=== PATIENT | male | born 1975 | race Two or more races ===

== ENCOUNTER 2019-08-14 13:39 | Inpatient (IN) | payer MEDICAID ==
[~2019-08-14] VITALS: Ht 160 cm; Wt 62.8 kg
[2019-08-14] MEDS ORDERED: loperamide 2mg capsule PO PRN (15:15)
[2019-08-14] MEDS ORDERED: magnesium hydroxide 30ml (MOM) UD suspension PO PRN (15:15)
[2019-08-14] MEDS ORDERED: acetaminophen 325mg tablet PO PRN ×2 (15:15)
[2019-08-14] MEDS ORDERED: mag hydrox/Alum hydrox/simeth 30ml oral suspension PO PRN (15:15)
[2019-08-14] MEDS ORDERED: hydrOXYzine 25 MG tablet PO PRN (15:15)
[2019-08-14] MEDS ORDERED: BUPR450T3 PO (16:14)
[2019-08-14] MEDS ORDERED: AZIT250T27 PO (16:14)
[2019-08-14] MEDS ORDERED: GABA-532 PO (16:14)
[2019-08-14] MEDS ORDERED: QUET200T30 PO (16:14)
[2019-08-14 16:54] VITALS: BP 123/72
--- NOTE | 2019-08-14 16:55 | NUR ---
Admission note: [facility] on a 5150 for DTS from [place]. Pt states "I want to kill myself, I want to do it the same way I tried it in March, overdose on Heroin, but this time I will be alone by the [place]. Im doing bad man super sad and not wanting to hurt my mother if I kill myself is losing its power." Client also hears voices telling him to kill himself.
[2019-08-14 20:00] VITALS: BP 104/55
[2019-08-14] MEDS ORDERED: ibuprofen 200mg tablet PO PRN (20:10)
[2019-08-14] MEDS: quetiapine 100mg tablet PO SCH (20:30)
[2019-08-14] MEDS: gabapentin 300mg capsule PO SCH (20:30)
[2019-08-14] MEDS: LORazepam 1 MG tablet PO PRN (20:40)
--- NOTE | 2019-08-15 01:12 | NUR ---
Nursing Progress Note: Legal hold:5150 Client on involuntary status for DTS Report received from nurse with use of SBAR: Jose D RN Why are they here: PT admitted to [facility] at 1502 on a 5150 for DTS from [place]. Pt states "I want to kill myself, I want to do it the same way I tried it in March, overdose on Heroin, but this time I will be alone by the [place]. Im doing bad man super sad and not wanting to hurt my mother if I kill myself is losing its power." Client also hears voices telling him to kill himself. Assessment What has happened this shift: Pt in room majority of shift, attempting to sleep. Pt stated, "I don't want to be here. I'm tired and fed up" in response to suicidality assessment. Pt did not want to discuss mental or physical state with this RN; took multiple attempts to elicit a response. Pt became visibly and verbally agitated when discussing his medications; "I am on a higher dose of gabapentin; I've been on it for years. Dr. Kilpatrick from [facility] should have my records." Pt is requesting an increase in gabapentin and Motrin to help manage his pain that it primarily in his L knee, "They took an MRI last Sunday at [facility] in [place]." Pt charged ankle bracelet in group room from 2016 to 2099 then returned to bedroom to sleep. Pt much calmer during HS med pass stating "Thank you for putting up with me. It is just frustrating they change the medications." S/I, H/I:+SI 05/10, no plan; Denies HI A/VH: Denies Both Sleep: See Sleep Assessment ADL's: Independent Group attendance: N/A Were meds taken: Yes Any med S/E: None reported nor noted Mental Status Exam Appearance: Wearing street clothes, nonskid socks and personal tennis shoes w/o laces, sunglasses Eye contact: Poor, wearing sunglasses most the assessment due to headache causing light sensitivity Behavior: Guarded, Attended HS Snack & charged ankle bracelet in group room Speech: Clear Mood: Agitated, Depression 10, Anxiety 04/09 Affect: Flat Thought process: Linear Thought Content: Wanting medication changes to what he was prescribed outside this facility, Chronic Knee pain, headache, Not wanting to be here Cognition: A&Ox4 Insight: Fair Judgment Fair Interventions PRN's used: Motrin, Tylenol, Ativan Therapeutic interventions:Q15 checks, therapeutic communication 1:1, PRNs as needed Restraints/seclusion/emergency medication: N/A Justification of Continued Inpatient Treatment: Pt voicing active SI intent; needs medication and talk therapy regimen initiated, as well as resources r/t homelessness to ensure pt is stabilized and no longer suicidal prior to discharge.
[2019-08-15] MEDS: gabapentin 300mg capsule PO SCH ×3 (07:40→20:40)
[2019-08-15] MEDS: buPROPion SR 150mg tablet PO SCH ×2 (07:40→20:41)
[2019-08-15 07:52] VITALS: BP 101/57
[2019-08-15 08:12] LABS: HEMOGLOBIN A1C 5.1 % (4.5-6.2)
[2019-08-15 08:14] LABS: CHOL/HDL RATIO 3.7 (0.00-4.99); CHOLESTEROL 156 MG/DL (0-200); HDL CHOLESTEROL 42 MG/DL (35-60); LDL CHOLESTEROL 112 MG/DL (50-100); TRIGLYCERIDES 106 MG/DL (20-135)
[2019-08-15] MEDS: LORazepam 1 MG tablet PO PRN ×3 (08:22→20:40)
[2019-08-15] MEDS: azithromycin 250mg tablet PO SCH (08:22)
[2019-08-15] MEDS ORDERED: FLU VACC QS2019-20 36MOS UP/PF 60 MCG/0.5 ML SYRINGE IMVAC ONE (10:00)
[2019-08-15] MEDS: NICOTINE POLACRILEX 2 MG LOZENGE BC PRN ×2 (14:29→18:08)
--- NOTE | 2019-08-15 17:30 | NUR ---
Nursing Progress Note: Legal hold:5150 Client on involuntary status for DTS Report received from nurse with use of SBAR: Deisy Zimmer RN Why are they here: PT admitted to [facility] at 1502 on a 5150 for DTS from [place]. Pt states "I want to kill myself, I want to do it the same way I tried it in March, overdose on Heroin, but this time I will be alone [place]. Im doing bad man super sad and not wanting to hurt my mother if I kill myself is losing its power." Client also hears voices telling him to kill himself. Assessment What has happened this shift: Pt. asleep at start of shift. Pt. took all medications and ate all meals in the community room. 1:1 done at bedside. Pt. reports SI with a plan to OD on heroin. Pt. states, I wont fail this time even thinking about my mother is not keeping me from ending my life. Pt. is upset because his gabapentin reportedly decreased from 1200mg TID to 300mg TID. Pt. requested PRN for anxiety and given Ativan 1mg po with good effect. Pt. in bed most of morning but in afternoon became more active and seen socializing with other staff. At dinner time pt. walked into the community room and shouted FK this! and walked out of the room. Pt. reports that he is upset that he is not getting the amount of gabapentin he needs. Pt. was able to calm himself down in his room. S/I, H/I: Pt. reports SI with plan to OD on heroin A/VH: Denies Both Sleep: See Sleep Assessment ADL's: Independent Group attendance: N/A Were meds taken: Yes Any med S/E: None reported nor noted Mental Status Exam Appearance: Wearing street clothes, nonskid socks and personal tennis shoes w/o laces, sunglasses Eye contact: Poor, wearing sunglasses most the assessment due to headache causing light sensitivity Behavior: Guarded, Attended HS Snack & charged ankle bracelet in group room Speech: Clear Mood: Agitated, Depression 9/10, Anxiety 7/10 Affect: Flat Thought process: Linear Thought Content: Wanting medication changes to what he was prescribed outside this facility, Chronic Knee pain, headache, Not wanting to be here Cognition: A&Ox4 Insight: Fair Judgment Fair Interventions PRN's used: Motrin, Tylenol, Ativan Therapeutic interventions:Q15 checks, therapeutic communication 1:1, PRNs as needed Restraints/seclusion/emergency medication: N/A Justification of Continued Inpatient Treatment: Pt voicing active SI intent; needs medication and talk therapy regimen initiated, as well as resources r/t homelessness to ensure pt is stabilized and no longer suicidal prior to discharge.
[2019-08-15 20:00] VITALS: BP 109/80
[2019-08-15] MEDS: quetiapine 100mg tablet PO SCH (20:41)
--- NOTE | 2019-08-16 03:10 | NUR ---
Nursing Progress Note: Legal hold: 5150 Client on involuntary status for DTS Report received from nurse with use of SBAR: KAVITHA Jeffery Why are they here: PT admitted to [facility] at 1502 on a 5150 for DTS from [place]. Pt states "I want to kill myself, I want to do it the same way I tried it in March, overdose on Heroin, but this time I will be alone by the [place]. Im doing bad man super sad and not wanting to hurt my mother if I kill myself is losing its power." Client also hears voices telling him to kill himself. Assessment What has happened this shift: Pt approached this RN at change of shift, agitated, and wanting to discuss medication dosages. "I just don't understand. This always happens to me." Pt states his gabapentin dose is incorrect; med hx show conflicting orders; SHAYAN Downey stated that he will contact the MDs regarding the conflicting orders to determine an accurate dosage. Pt visibly angry ans returned to room. During 1:1, pt stated "I just want this to be all be over. I'm tired of it all. If my mom was I could just do it. Isn't that bad, wanting you mom to be gone so that you can be gone? (Pt has expressed not following through with attempts because he didn't want to disappoint his mom)." Pt continued, "I should have just done it and not been a coward. This shit is always happening to me." Pt and RN discussed options to determining gabapentin dosage as well as the courage required to seek help. Pt was calmer by the end of the conversation, but still agitated. Ativan given with HS medications. SHAYAN Downey okay'd motrin increase from 200mg to 600mg TID PRN. Pt ankle bracelet charged in room with this RN sitting 1 to 1. Educated pt that in room charging would only occur this one time due to circumstances of the evening; pt verbalized understanding. S/I, H/I:+SI 10/10 via OD; Denies HI A/VH: Denies Both Sleep: See Sleep Assessment ADL's: Independent Group attendance: N/A Were meds taken: Yes Any med S/E: None reported nor noted Mental Status Exam Appearance: Wearing street clothes, nonskid socks and personal tennis shoes w/o laces, sunglasses Eye contact: Poor, wearing sunglasses most the assessment due to headache causing light sensitivity Behavior: Guarded, Attended HS Snack Speech: Clear Mood: Agitated but able to de-escalate, Depression 06/10, Anxiety 04/09 Affect: Congruent to mood Thought process: Linear Thought Content: Wanting medication changes to what he was prescribed outside this facility Cognition: A&Ox4 Insight: Fair Judgment Fair Interventions PRN's used: Ativan Therapeutic interventions:Q15 checks, therapeutic communication 1:1, PRNs as needed Restraints/seclusion/emergency medication: N/A Justification of Continued Inpatient Treatment: Pt voicing active SI intent; needs medication and talk therapy regimen initiated, as well as resources r/t homelessness to ensure pt is stabilized and no longer suicidal prior to discharge.
[2019-08-16] MEDS: LORazepam 1 MG tablet PO PRN (05:41)
[2019-08-16 07:30] VITALS: BP 112/67
[2019-08-16] MEDS: lurasidone 20mg tablet PO SCH (07:30)
[2019-08-16] MEDS: buPROPion SR 150mg tablet PO SCH ×2 (07:50→20:20)
[2019-08-16] MEDS: azithromycin 250mg tablet PO SCH (07:50)
[2019-08-16] MEDS: gabapentin 300mg capsule PO SCH ×3 (07:50→20:20)
[2019-08-16] MEDS: nicotine 21mg patch - 24 hr TD SCH (07:51)
[2019-08-16 08:00] VITALS: BP 112/67
[2019-08-16] MEDS: hydrOXYzine 25 MG tablet PO PRN ×2 (11:56→17:31)
--- NOTE | 2019-08-16 12:40 | NUR ---
Nurse note: Pt has been discussing with SHAYAN Schrader about his medications and wanting them increased and making promises he will "Go off." or "I will need a padded room if" he doesn't get the medications he is requesting. PA made an adjustment and discontinued Ativan. Pt then requests his BP checked due to "Chest pain." VS WNL and SHAYAN is aware. Pt continues to complain and just wants to leave.
[2019-08-16 12:44] VITALS: BP 117/77
[2019-08-16] MEDS: ibuprofen 200mg tablet PO PRN (15:44)
--- NOTE | 2019-08-16 17:00 | NUR ---
Nursing Progress Note: Legal hold: 5150 Client on involuntary status for DTS Report received from nurse with use of SBAR: Hyun Zimmer RN Why are they here: PT admitted to [facility] at 1502 on a 5150 for DTS from [place]. Pt states "I want to kill myself, I want to do it the same way I tried it in March, overdose on Heroin, but [place]. Im doing bad man super sad and not wanting to hurt my mother if I kill myself is losing its power." Client also hears voices telling him to kill himself. Assessment What has happened this shift: Pt. asleep at start of shift. Pt. awoke and c/o nausea and vomiting, when asked if he wanted medication for emesis pt. stated, Ill eat breakfast and then Ill be ok. Pt. ate all meals in the community room. 1:1 done at bedside. Pt. refused Latuda this AM yelling, What the fK! I am not getting the medications I need, you all are trying to kill me!... All these external forces are against me, it shows that I really should just kill myself In afternoon pt. requested. Ativan, however, when informed that Ativan was discontinued pt. became enraged, stating, You people are not giving me what I need! Pt. than stated, you might as well put me in the padded room because things are about to get serious Security called and pt. was able to calm himself down. Pt. refused hydroxyzine. Pt. called pt. advocate. In Afternoon pt. c/o that his left knee is dislocated, RN assessed knee which did not look dislocated, pt. requesting Ultram for pain. Pt given Motrin 600mg but RN informed pt.s provider of request for ultram and denied. Pt. unhappy about refusal for motrin and began to swear and say Im going to kill myself. Pt. given Tylenol 650mg for pain and knee iced. Pt. reporting that he is going to punch the wall if he does not get what he wants. 20 minutes later pt. came out of his room with swollen right hand saying he tripped on a blanket and injured his hand. X-Ray ordered of right hand and left knee. S/I, H/I: +SI with plan to OD on heroin. 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 ADL's: Independent Group attendance: N/A Were meds taken: Yes Any med S/E: None reported nor noted Mental Status Exam Appearance: Wearing street clothes, nonskid socks and personal tennis shoes w/o laces, sunglasses Eye contact: minimal Behavior: Pt. is guarded and agitated Speech: Clear Mood: Angry but able to de-escalate. Labile. Affect: Congruent to mood Thought process: Linear Thought Content: Wants medication changes Cognition: A&Ox4 Insight: Fair Judgment Fair Interventions PRN's used: Stewart Therapeutic interventions:Q15 checks, therapeutic communication 1:1, PRNs as needed Restraints/seclusion/emergency medication: N/A Justification of Continued Inpatient Treatment: Pt voicing active SI intent; needs medication and talk therapy regimen initiated, as well as resources r/t homelessness to ensure pt is stabilized and no longer suicidal prior to discharge. Addendum: 08/16/19 at 1827 by Dave Meehan RN @ [id number] pt. given Atarax 50mg po for anxiety.
[2019-08-16 20:00] VITALS: BP 118/73
[2019-08-16] MEDS: quetiapine 100mg tablet PO SCH (20:20)
[2019-08-17] MEDS: hydrOXYzine 25 MG tablet PO PRN (01:23)
--- NOTE | 2019-08-17 02:16 | NUR ---
Nursing Progress Note: Legal hold: 5150 Client on involuntary status for DTS Report received from nurse with use of SBAR: Jose D RN Why are they here: PT admitted to [facility] at 1502 on a 5150 for DTS from [place]. Pt states "I want to kill myself, I want to do it the same way I tried it in March, overdose on Heroin, but this time I will be alone [place]. Im doing bad man super sad and not wanting to hurt my mother if I kill myself is losing its power." Client also hears voices telling him to kill himself. Assessment What has happened this shift: PT approaches conventional mortgage underwriter asking for Tramadol for his left knee. Lead Sprinkler educates him on his medication regimen and explains that he does have have tramadol available. PT explains why he feels he needs it and adds, "I have been nice and I haven't hurt anyone, but you know I really need something for my knee and my anxiety." Pt speaks to Raciel Miles who also explains his medication regimen. Pt is not happy with this and asks conventional mortgage underwriter if he can charge his ankle monitor. Lead Sprinkler goes to get it and pt is upset saying, "I need it charged NOW it is beeping!" Lead Sprinkler plugs it in for him in the community room in line of sight of staff member. "Oh I can't even plug it in, I see, Tito Mathis. " PT calmed down after about an hour and was observed socializing with his peers. Pt was pleasant with staff after this, and was medication compliant. S/I, H/I:+SI; Denies HI A/VH: Denies Both Sleep: See Sleep Assessment ADL's: Independent Group attendance: N/A Were meds taken: Yes Any med S/E: None reported nor noted Mental Status Exam Appearance: Wearing street clothes, nonskid socks and personal tennis shoes w/o laces Behavior: Guarded, upset Speech: Clear Mood: Agitated but able to de-escalate Affect: Congruent to mood Thought process: Linear Thought Content: Wanting medication changes Cognition: A&Ox4 Insight: Fair Judgment Fair Interventions PRN's used: atarax Therapeutic interventions:Q15 checks, therapeutic communication 1:1, PRNs as needed Restraints/seclusion/emergency medication: N/A Justification of Continued Inpatient Treatment: Pt voicing active SI intent; needs medication and talk therapy regimen initiated, as well as resources r/t homelessness to ensure pt is stabilized and no longer suicidal prior to discharge.
[2019-08-17] MEDS: lurasidone 20mg tablet PO SCH (07:35)
[2019-08-17] MEDS: nicotine 21mg patch - 24 hr TD SCH (07:35)
[2019-08-17] MEDS: buPROPion SR 150mg tablet PO SCH (07:36)
[2019-08-17] MEDS: gabapentin 300mg capsule PO SCH ×2 (07:55→13:35)
[2019-08-17 08:00] VITALS: BP 118/64
[2019-08-17] MEDS: ibuprofen 200mg tablet PO PRN (09:19)
[2019-08-17] MEDS ORDERED: haloperidol 5mg tablet PO ONE (15:00)
[2019-08-17] MEDS ORDERED: diphenhydrAMINE 25mg capsule PO ONE (15:00)
--- NOTE | 2019-08-17 15:30 | NUR ---
Note: Pt cursing and shouting. Staff in room attempting to deescalate pt. Pt punching the wall threatening to kill himself. Pt escalating the other pts on the unit. Pt has been making demands about his medications of Ativan and Gabapentin. Pt has been making multiple gestures of suicide with his sheets or Heroin. Pt argumentative about his treatment here. Pt refusing the Prns that are offered stating he needs different ones. Security called and arrive. SHAYAN Schrader speaks to pt about discharge.
[2019-08-17] MEDS ORDERED: NICO-687 TD (15:38)
[2019-08-17] MEDS ORDERED: QUET100T33 PO (15:38)
[2019-08-17] MEDS ORDERED: GABA300C PO (15:38)
[2019-08-17] MEDS ORDERED: BUPR450T3 PO (15:38)
[2019-08-17] MEDS ORDERED: LURA20TA PO (15:38)
--- NOTE | 2019-08-17 16:00 | NUR ---
Discharge note: Pt was discharged from the unit , ambulating self, accompanied by two security guards. All personal items and valuables were inventoried and signed for, and in Pt's possession at time of discharge. No distress observed. Discharge instructions given by JEFFREY Jeffery. Pt provided opportunity to ask questions, answers were provided and Pt verbalized understanding of plan. Community Crisis service information and National Suicide Hotline information given. Pt states that he will set up his own follow up appointments in [facility]. Pt denies current SI, HI, A/VH. Offered nicotine replacement. Pt declined.
--- NOTE | 2019-08-18 08:09 | NUR ---
Pt d/c'd over the weekend w/plan to rt to [facility] & f/u w/[facility] services to resume outpt care. SS referral closed. Addendum: 08/18/19 at 0810 by Donna Bartlett SS Amended: Links added.
== END 2019-08-17 15:59 | disposition short-term general hospital (02) | DRG 753 ==
LOC: ADULT MH 14:58
PROVIDERS: ADMIT Psychiatry & Neurology Psychiatry; ATTEND Internal Medicine
DX: F31.9 Bipolar disorder, unspecified (principal); R45.851 Suicidal ideations; F17.200 Nicotine dependence, unspecified, uncomplicated; Z28.21 Immunization not carried out because of patient refusal; B18.2 Chronic viral hepatitis C; F41.0 Panic disorder [episodic paroxysmal anxiety]; Z59.0 Homelessness; F10.21 Alcohol dependence, in remission; F60.81 Narcissistic personality disorder; F60.2 Antisocial personality disorder
CPT/HCPCS: 36415; 73120; 73560; 80061; 83036; 87081; Q0163; Q2037; Z7610